=== PATIENT | male | born 1960 | race Caucasian/White ===

== ENCOUNTER 2018-06-27 16:23 | Emergency (ER) | payer BC, OTHER ==
[2018-06-27] MEDS ORDERED: ASPIRIN 81 MG CHEWABLE TAB PO ONE (16:32)
--- NOTE | 2018-06-27 16:50 | EDPHY ---
H & P Stated Complaint: cp @ 5288 -6056 Time Seen by Provider: 06/27/18 16:43 HPI/ROS: CHIEF COMPLAINT: Chest pain HISTORY OF PRESENT ILLNESS: The patient is a a 58-year-old man who developed some chest discomfort that radiated down to his epigastrium. This began at 9: 30 a.m. This morning and resolved around 330 while he was waiting at the urgent care. He initially thought that it was gastrointestinal because he had a lot of gas as well. He did not experience any heartburn. No shortness of breath. No nausea vomiting. No diaphoresis. No dizziness. Not worsened by exertion. He also thought maybe he was sitting awkwardly in his desk when it began. He does have a small sternal bony deformity that he states has been growing over the last several months that he also wondered if that was contributing. No fevers. No recent travel. No cough. Nonsmoker. No leg pain or swelling. No radiation to his back or neck. Severity: Mild Modifying factors: Resolved with time REVIEW OF SYSTEMS: Constitutional: denies: chills, fever, recent illness, recent injury EENTM: denies: blurred vision, double vision, nose congestion Respiratory: denies: cough, shortness of breath Cardiac: See HPI Gastrointestinal/Abdominal: denies: abdominal pain, diarrhea, nausea, vomiting, blood streaked stools Genitourinary: denies: dysuria, frequency, hematuria, pain Musculoskeletal: denies: joint pain, muscle pain Skin: denies: lesions, rash, jaundice, bruising Neurological: denies: headache, numbness, paresthesia, tingling, dizziness, weakness Hematologic/Lymphatic: denies: blood clots, easy bleeding, easy bruising Immunologic/allergic: denies: HIV/AIDS, transplant 10 systems reviewed and negative except as noted EXAM: GENERAL: Well-appearing, well-nourished and in no acute distress. HEAD: Atraumatic, normocephalic. EYES: Pupils equal round and reactive to light, extraocular movements intact, sclera anicteric, conjunctiva are normal. ENT: TMs normal, nares patent, oropharynx clear without exudates. Moist mucous membranes. NECK: Normal range of motion, supple without lymphadenopathy or JVD. LUNGS: Breath sounds clear to auscultation bilaterally and equal. No wheezes rales or rhonchi. HEART: Regular rate and rhythm without murmurs, rubs or gallops. Small firm nodule at distal 3rd of sternum. Feels bony. Nontender. ABDOMEN: Soft, nontender, normoactive bowel sounds. No guarding, no rebound. No masses appreciated. BACK: No CVA tenderness, no spinal tenderness, step-offs or deformities EXTREMITIES: Normal range of motion, no pitting or edema. No clubbing or cyanosis. NEUROLOGICAL: Cranial nerves II through XII grossly intact. Normal speech, normal gait. 5/5 strength, normal movement in all extremities, normal sensation , normal reflexes PSYCH: Normal mood, normal affect. SKIN: Warm, dry, normal turgor, no visible rashes or lesions. Source: Patient Exam Limitations: No limitations - Personal History Current Tetanus Diphtheria and Acellular Pertussis (TDAP): Yes - Medical/Surgical History Hx Asthma: No Hx Chronic Respiratory Disease: No Hx Diabetes: No Hx Cardiac Disease: No Hx Renal Disease: No Hx Cirrhosis: No Hx Alcoholism: No Hx HIV/AIDS: No Other PMH: HTN. low TSH. cholecystectomy. ortho. Arrthymia - Family History Significant Family History: No pertinent family hx - Social History Smoking Status: Never smoked Alcohol Use: Sober Drug Use: None Constitutional: Initial Vital Signs Temperature (C) 36.5 C 06/27/18 16:25 Heart Rate 56 L 06/27/18 16:25 Respiratory Rate 16 06/27/18 16:25 Blood Pressure 157/84 H 06/27/18 16:25 O2 Sat (%) 93 06/27/18 16:25 O2 Delivery Mode Room Air Allergies/Adverse Reactions: No Known Allergies Allergy (Unverified 06/27/18 16:31) Home Medications: Medication Instructions Recorded Chlorthalidone 06/27/18 Diltiazem 06/27/18 Levothyroxine 06/27/18 Lipitor 06/27/18 Lisinopril 06/27/18 Medical Decision Making - Diagnostics EKG Interpretation: An EKG obtained and was read and documented in trace view. Please see trace view for full reading and report. Sinus rhythm, no acute ischemic changes, no signs of right heart strain. Imaging Results: Imaging Impressions Chest X-Ray 06/27/18 16:49 Impression: No acute cardiopulmonary process. Imaging: Discussed imaging studies w/ lap welder Radiologist ED Course/Re-evaluation: We discussed the test results which are very reassuring. We also discussed the x-ray and the calcification on his sternum. He states that he will follow up with his primary doctor as well as with Dr. Ponce who he has seen before. He declines further workup or testing at this time. We had a discussion about shared decision making. Differential Diagnosis: Partial list of the Differential diagnosis considered include but were not limited to; chest wall pain, acute coronary disease, arrhythmia, GERD, gas and although unlikely based on the history and physical exam, I also considered ulcer, dissection, PE. I discussed these differential diagnoses and the plan with the patient as well as the usual and expected course. The patient understands that the diagnosis is provisional and that in medicine we are not always correct and that further workup is often warranted. Usual and customary warnings were given. All of the patient's questions were answered. The patient was instructed to return to the emergency department should the symptoms at all worsen or return, otherwise to followup with the physician as we discussed. - Data Points Laboratory Results: 06/27/18 06/27/18 17:11 16:52 POC Sodium 144 mEq/L mEq/L (135-145) POC Potassium 3.2 mEq/L L mEq/L (3.3-5.0) POC Chloride 102.0 mEq/L mEq/L (97-110) POC Total CO2 29 mEq/L mEq/L (22-31) POC BUN 16 mg/dL mg/dL (7-23) POC Creatinine 1.4 mg/dL H mg/dL (0.7-1.3) POC Glucose 83 mg/dL mg/dL (70-100) POC Calcium 9.7 mg/dL mg/dL (8.5-10.4) POC Total Bilirubin 1.4 mg/dL mg/dL (0.1-1.4) POC AST 24 IU/L IU/L (17-59) POC ALT 27 IU/L IU/L (21-72) POC Alk Phosphatase 68 IU/L IU/L (38-126) POC Troponin I 0.01 ng/mL ng/mL (0.00-0.08) POC Total Protein 7.3 g/dL g/dL (6.3-8.2) POC Albumin 3.8 g/dL g/dL (3.5-5.0) Medications Given: Discontinued Medications Aspirin (Aspirin) 324 mg PO EDNOW ONE Stop: 06/27/18 16:33 Last Admin: 06/27/18 16:37 Dose: 324 mg Point of Care Test Results: CBC CBC Collection Date 06/27/18 CBC Collection Time 16:40 WBC 7.4 RBC 5.98 HGB 16.6 HCT 48.7 PLT 261 Neut # 5.7 Neut 76.8 LYMPH # 1.5 LYMPH 20.4 Other WBC # 0.2 Other WBC 2.8 MCV 81.4 Chemistry 06/27/18 06/27/18 17:11 16:52 POC Sodium 144 mEq/L mEq/L (135-145) POC Potassium 3.2 mEq/L L mEq/L (3.3-5.0) POC Chloride 102.0 mEq/L mEq/L (97-110) POC Total CO2 29 mEq/L mEq/L (22-31) POC BUN 16 mg/dL mg/dL (7-23) POC Creatinine 1.4 mg/dL H mg/dL (0.7-1.3) POC Glucose 83 mg/dL mg/dL (70-100) POC Calcium 9.7 mg/dL mg/dL (8.5-10.4) POC Total Bilirubin 1.4 mg/dL mg/dL (0.1-1.4) POC AST 24 IU/L IU/L (17-59) POC ALT 27 IU/L IU/L (21-72) POC Alk Phosphatase 68 IU/L IU/L (38-126) POC Troponin I 0.01 ng/mL ng/mL (0.00-0.08) POC Total Protein 7.3 g/dL g/dL (6.3-8.2) POC Albumin 3.8 g/dL g/dL (3.5-5.0) D-Dimer D-Dimer Collection Date 06/27/18 D-Dimer Collection Time 17:20 D-Dimer (ng/ml) <100 Departure - Departure Disposition: Home, Routine, Self-Care Clinical Impression: Chest pain Qualifiers: Chest pain type: unspecified Qualified Code(s): R07.9 - Chest pain, unspecified Condition: Fair Instructions: Chest Pain (ED) Referrals: Maria Eugenia Meyer MD [Primary Care Provider] - 2-3 days, if not improved Ponce,Bouchra G, MD [Medical Doctor] - As per Instructions
--- NOTE | 2018-06-27 16:56 | CPEKG ---
Test Reason : OPEN Blood Pressure : / mmHG Vent. Rate : 052 BPM Atrial Rate : 052 BPM P-R Int : 154 ms QRS Dur : 100 ms QT Int : 434 ms P-R-T Axes : 075 066 038 degrees QTc Int : 404 ms Sinus rhythm Confirmed by Jeremie Rico ([id number]) on 06/27/2018 4:56:09 PM Referred By: Confirmed By:Jeremie Rico
[2018-06-27 19:15] VITALS: BP 149/97
== END 2018-06-27 18:30 | disposition home or self-care (01) ==
LOC: CED 16:23
DX: R07.9 Chest pain, unspecified (principal); I10 Essential (primary) hypertension; Z90.49 Acquired absence of other specified parts of digestive tract
CPT/HCPCS: 71046-PO; 80053-PO; 84484-ER